=== PATIENT | female | born 1970 | race Caucasian/White ===

== ENCOUNTER 2017-11-22 08:38 | Day surgery (SDC) | payer BC ==
[~2017-11-22 08:38] MED LIST: CEFAZOLIN 1 GM/50 ML (PMX) 50 ML IVPB; SOD CHLORIDE 0.9% 1,000 ML IV
[2017-11-22 11:42] LABS: ADD MAN DIFF? NO
[2017-11-22 11:46] LABS: WHITE BLOOD COUNT 11.3 10^3/ul (4.8-10.8)
[2017-11-22 11:46] LABS: BASOPHILS % 0.4 % (0.0-2.0); EOSINOPHILS # 0.1 10^3/ul (0.0-0.5); EOSINOPHILS % 1.2 % (0.0-7.0); HEMATOCRIT 40.4 % (37.0-47.0); HEMOGLOBIN 13.6 g/dl (12.0-16.0); LYMPHOCYTES # 3.4 10^3/ul (0.8-2.9); LYMPHOCYTES % 29.7 % (15.0-51.0); MEAN CORPUSCULAR HEMOGLOBIN 29.4 pg (29.0-33.0); MEAN CORPUSCULAR HGB CONC 33.7 g/dl (32.0-37.0); MEAN CORPUSCULAR VOLUME 87.3 fl (82.0-101.0); MEAN PLATELET VOLUME 10.7 fl (7.4-10.4); MONOCYTE # 0.9 10^3/ul (0.3-0.9); MONOCYTES % 8.2 % (0.0-11.0); NEUTROPHIL # 6.8 10^3/ul (1.6-7.5); NEUTROPHILS % 60.1 % (39.0-77.0); PLATELET COUNT 447 10^3/UL (140-415); RED BLOOD COUNT 4.63 10^6/ul (4.20-5.40)
[2017-11-22 11:48] LABS: INR 0.93; PROTIME 12.5 Sec (11.9-14.9)
[2017-11-22 11:51] LABS: ALANINE AMINOTRANSFERASE 58 IU/L (13-69); ALBUMIN 4.7 g/dl (3.3-4.9); ALBUMIN/GLOBULIN RATIO 1.34; ALKALINE PHOSPHATASE 90 IU/L (42-121); ANION GAP 18 (8-16); ASPARTATE AMINO TRANSFERASE 31 IU/L (15-46); BILIRUBIN,INDIRECT 0.3 mg/dl (0-1.1); BILIRUBIN,TOTAL 0.3 mg/dl (0.2-1.3); CARBON DIOXIDE 25 mmol/L (21-31); CHLORIDE 105 mmol/L (97-110); GLUCOSE 95 mg/dl (70-220); TOTAL PROTEIN 8.2 g/dl (6.1-8.1)
[2017-11-22 11:55] LABS: BLOOD UREA NITROGEN 14 mg/dl (7-20); CALCIUM 9.3 mg/dl (8.4-10.2); CREATININE 0.58 mg/dl (0.44-1.00); POTASSIUM 3.8 mmol/L (3.5-5.1); SODIUM 144 mmol/L (135-144)
[2017-11-22] MEDS ORDERED: CEFAZOLIN 1 GM INJ (16:02)
[2017-11-22] MEDS ORDERED: PROPOFOL 20 ML (16:02)
[2017-11-22] MEDS ORDERED: FENTAnyl 50 MCG/ML VIAL ×2 (16:02→16:37)
[2017-11-22] MEDS ORDERED: MIDAZOLAM 1 MG/ML 2 ML INJ (16:02)
[2017-11-22] MEDS ORDERED: LABETALOL HCL 20MG INJ (16:38)
[2017-11-22] MEDS ORDERED: hydrALAzine 20 MG INJ (16:39)
[2017-11-22] MEDS ORDERED: KETOROLAC 30 MG INJ (16:40)
[2017-11-22] MEDS ORDERED: DEXAMETHASONE 4 MG/ML 1 ML INJ (16:40)
[2017-11-22] MEDS ORDERED: METOCLOPRAMIDE 10 MG INJ (16:40)
[2017-11-22] MEDS ORDERED: ONDANSETRON 4 MG INJ (16:40)
[2017-11-22] MEDS ORDERED: SUGAMMADEX SODIUM 200 MG/2 ML VIAL IV (16:48)
[2017-11-22] MEDS ORDERED: OXYCODONE/ACETAMINOPHEN (5/325) TAB PO (17:00)
[2017-11-22] MEDS ORDERED: LABETALOL HCL 20MG INJ IV (17:00)
[2017-11-22] MEDS ORDERED: hydrALAzine 20 MG INJ IV (17:00)
[2017-11-22] MEDS ORDERED: FENTAnyl 50 MCG/ML VIAL IV ×3 (17:00)
[2017-11-22] MEDS ORDERED: HYDROmorphONE (0.2 MG/ML) 10ML SYG IV ×3 (17:00)
[2017-11-22] MEDS ORDERED: METOCLOPRAMIDE 10 MG INJ IV (17:00)
[2017-11-22] MEDS ORDERED: EPHEDrine SULFATE 50 MG/5 ML SYG IV (17:00)
[2017-11-22] MEDS ORDERED: HYDROCODONE/APAP (7.5/325) TAB PO ×2 (17:00)
[2017-11-22] MEDS: MEPERIDINE 25 MG INJ IV (17:21)
[2017-11-22] MEDS: ONDANSETRON 4 MG INJ IV (17:21)
[2017-11-22] MEDS: OXYCODONE/ACETAMINOPHEN (5/325) TAB PO (17:21)
== END 2017-11-22 18:29 | disposition home or self-care (01) ==
LOC: SDS 08:38
DX: N60.12 Diffuse cystic mastopathy of left breast (principal); E66.9 Obesity, unspecified; Z68.34 Body mass index [BMI] 34.0-34.9, adult; I10 Essential (primary) hypertension
CPT/HCPCS: 19120; 80053; 84703; 85025; 85610; 85730; 88307